=== PATIENT | male | born 1970 | race Caucasian/White ===

== ENCOUNTER 2022-10-09 10:52 | Emergency (ER) | payer MEDICAID ==
[~2022-10-09] VITALS: Ht 165.1 cm; Wt 62.0 kg
[2022-10-09] MEDS ORDERED: ATI1T PO (12:08)
[2022-10-09] MEDS ORDERED: ONDA4TAB12 PO (12:08)
[2022-10-09] MEDS ORDERED: LORazepam 1 MG tablet PO ONE (12:10)
[2022-10-09] MEDS ORDERED: ondansetron 4mg rapidly disintigrating tab PO ONE (12:10)
[2022-10-09 12:16] VITALS: BP 96/63
== END 2022-10-09 12:19 | disposition home or self-care (01) ==
LOC: ER 10:53
DX: F10.139 Alcohol abuse with withdrawal, unspecified (principal); R11.0 Nausea; Y90.9 Presence of alcohol in blood, level not specified; Z00.8 Encounter for other general examination; F12.10 Cannabis abuse, uncomplicated; Z56.0 Unemployment, unspecified
CPT/HCPCS: 99283

== ENCOUNTER 2024-04-20 09:58 | Emergency (ER) | payer MEDICAID ==
[~2024-04-20] VITALS: Ht 165.1 cm; Wt 60.2 kg
[~2024-04-20 09:58] MED LIST: ATI1T PO; ONDA-243 PO
[2024-04-20 09:59] VITALS: BP 108/67; PULSE 75; RESP 16; TEMP 98; O2SAT 100
== END 2024-04-20 10:58 | disposition home or self-care (01) ==
LOC: ER 09:59
DX: F10.10 Alcohol abuse, uncomplicated (principal); Z79.899 Other long term (current) drug therapy; F12.90 Cannabis use, unspecified, uncomplicated
CPT/HCPCS: 99281